=== PATIENT | male | born 1990 | race Caucasian/White ===

== ENCOUNTER 2017-04-10 11:13 | Emergency (ER) | payer BC, OTHER ==
[2017-04-10] MEDS ORDERED: Diphtheria,Pertussis(Acell),Tetanus Vaccine 0.5 ML SDV IM ONE (11:52)
--- NOTE | 2017-04-10 11:52 | EDM.PDOC ---
ED HPI GENERAL MEDICAL PROBLEM - General Chief Complaint: Upper Extremity Injury/Pain Stated Complaint: Laceration Time Seen by Provider: 04/10/17 11:40 Source of Information: Reports: Patient, RN Notes Reviewed History Limitations: Reports: No Limitations - History of Present Illness INITIAL COMMENTS - FREE TEXT/NARRATIVE: 26 year old presents to the ED with large laceration to his left forearm. Injury occurred while using a nut grinder. The injury occurred shortly prior to arrival. He denies numbness, tingling or weakness distal to injury. Last tetanus is unknown, he feels it's been approximately 5 years ago but is not sure. Left Arm Pain Score (Numeric/FACES): 4 - Related Data Allergies Allergy/AdvReac Type Severity Reaction Status Date / Time No Known Allergies Allergy Verified 04/10/17 11:17 Home Meds: Home Meds Claritin. 04/10/17 [History] Past Medical History - Past Health History Medical/Surgical History: Denies Medical/Surgical History Other HEENT History: ringing L) ear, wears eyeglasses Social & Family History - Tobacco Use Smoking Status *Q: Never Smoker - Alcohol Use Days Per Week of Alcohol Use: 2 Number of Drinks Per Day: 2 Total Drinks Per Week: 4 - Recreational Drug Use Recreational Drug Use: No Review of Systems - Review of Systems Review Of Systems: See Below Musculoskeletal: Reports: Arm Pain Skin: Reports: Wound Neurological: Denies: Numbness, Tingling, Weakness ED EXAM, GENERAL - Physical Exam Exam: See Below Exam Limited By: No Limitations General Appearance: Alert, WD/WN, No Apparent Distress Respiratory/Chest: No Respiratory Distress Cardiovascular: Regular Rate, Rhythm Extremities: Other (large laceration to left inner forearm. Patient Placement Coordinator strength is strong. CMS intact. No neurovascular injury. Has strength against resistance with open hand. ) Neurological: Alert, No Motor/Sensory Deficits Skin Exam: Warm, Dry, Normal Color, Other (5cm laceration to left inner forearm. Approximately 1.5cm is superficial and does not require sutures. ) ED TRAUMA EXTREMITY PROCEDURES - Laceration/Wound Repair Left Arm Lac/Wound Length In cm: 5 Appearance: Subcutaneous, Linear, Mildly Contaminated Distal NVT: Neuro & Vascular Intact, No Tendon Injury Anesthetic Type: Local Local Anesthesia - Lidocaine (Xylocaine): 1% with EPI Local Anesthetic Volume: 4cc Skin Prep: Saline Exploration/Debridement/Repair: Wound Explored, In a Bloodless Field, Explored to Base, No Foreign Material Found, Other (Thoroughly irrigated ) Closed With: Sutures Suture Size: 3-0 # of Sutures: 5 Suture Type: Nylon, Interrupted, Simple Sterile Dressing Applied: Nurse Tetanus Status Addressed: Yes Complications: No Course - Vital Signs Last Recorded V/S: Last Vital Signs Temp 97.8 F 04/10/17 11:18 Pulse 78 04/10/17 11:18 Resp 16 04/10/17 11:18 BP 152/104 H 04/10/17 11:18 Pulse Ox 96 04/10/17 11:18 - Orders/Labs/Meds Orders: Active Orders 24 hr Category Date Time Status Vaccines to be Administered [RC] PER UNIT ROUTINE Care 04/10/17 11:52 Ordered Meds: Medications Discontinued Medications Generic Name Dose Route Start Last Admin Trade Name Freq PRN Reason Stop Dose Admin Diphtheria/Tetanus/Acell Pertussis 0.5 ml 04/10/17 11:52 04/10/17 12:33 Adacel IM 04/10/17 11:53 0.5 ml .ONCE ONE Administration Lidocaine/Epinephrine Confirm 04/10/17 11:57 04/10/17 12:39 Xylocaine 1% With Epinephrine 1:100,000 Administered 04/10/17 11:58 Not Given Dose 20 ml .ROUTE .STK-MED ONE Lidocaine/Epinephrine 20 ml 04/10/17 12:39 04/10/17 12:20 Xylocaine 1% With Epinephrine 1:100,000 INJECT 04/10/17 12:40 20 ml ONETIME STA Administration - Re-Assessments/Exams Free Text/Narrative Re-Assessment/Exam: Wound margins were mildly dirty. Interior aspect of the wound is clean. Wound thoroughly irrigated. Antibiotics are not indicated. Tdap updated. Departure - Departure Time of Disposition: 12:11 Disposition: Home, Self-Care 01 Condition: Good Clinical Impression: Laceration, Tetanus toxoid inoculation - Discharge Information Instructions: Laceration Care, Adult Referrals: PCP,Not In Area [Primary Care Provider] - Forms: ED Department Discharge Additional Instructions: Laceration with suture repair Try to keep initial dressing in place for 24 hours After 24 hours, you can gently wash the wound with gentle soap and water Do not submerge the area in water until the sutures are out Apply antibiotic ointment and keep the wound covered for first 2-3 days then leave open to air Keep wound covered if there is a chance it can get dirty Sutures need to be removed in 8-10 days [facility] removes sutures for free. Their hours are 8am- 5pm Friday through Friday. Return to clinic if signs or symptoms of infection arise, including increased redness, swelling, drainage, or fever Tylenol or Ibuprofen as needed for pain - My Orders Last 24 Hours: My Active Orders 04/10/17 11:52 Vaccines to be Administered [RC] PER UNIT ROUTINE - Assessment/Plan Last 24 Hours: My Active Orders 04/10/17 11:52 Vaccines to be Administered [RC] PER UNIT ROUTINE
[2017-04-10] MEDS ORDERED: Lidocaine 1% with EPINEPHrine 1:100,000 20 ML MDV ONE (11:57)
[2017-04-10 12:00] VITALS: BP 152/104
[2017-04-10] MEDS ORDERED: Lidocaine 1% with EPINEPHrine 1:100,000 20 ML MDV INJECT STA (12:39)
== END 2017-04-10 12:40 | disposition home or self-care (01) ==
LOC: JD.ED 11:13
DX: S51.812A Laceration without foreign body of left forearm, initial encounter (principal); Z23 Encounter for immunization; W31.89XA Contact with other specified machinery, initial encounter
CPT/HCPCS: 12002; 90471; 90715; 99282-25; 99283-25

== ENCOUNTER → 2018-05-28 | Day surgery (SDC) | payer BC ==
[~2018-05-28] MED LIST: Ketamine 500 mg/10 ML MDV ONE; Lidocaine 1% 0 ML ONE; Midazolam 1 MG/ML 2 ML SDV ONE; Ondansetron 4 MG/2 ML SDV ONE; Propofol 200 MG/20 ML SDV ONE; ceFAZolin 1 GM Vial ONE; fentaNYL 100 MCG/2 ML SDV ONE
--- NOTE | 2018-05-28 10:21 | PCM.PREANE ---
Preanesthetic Assessment - Anesthesia/Transfusion/Family Hx Anesthesia History: Prior Anesthesia Without Reaction Family History of Anesthesia Reaction: No Transfusion History: No Prior Transfusion(s) - Review of Systems General: No Symptoms Pulmonary: No Symptoms, Other (Nodule noted on CXR. Dr. Ramirez and YELITZA Parsons aware. ) Cardiovascular: No Symptoms Gastrointestinal: No Symptoms Neurological: No Symptoms Other: Reports: None - Physical Assessment NPO Status Date: 05/27/18 ASA Class: 1 Mental Status: Alert & Oriented x3 Airway Class: Mallampati = 2 Dentition: Reports: Normal Dentition (Chipped tooth back molar on the right. ) Thyro-Mental Finger Breadths: 3 Mouth Opening Finger Breadths: 3 ROM/Head Extension: Full Lungs: Clear to Auscultation, Normal Respiratory Effort Cardiovascular: Murmurs (Right side, slight murmur noted, EKG done, ECHO pending. Denies symptoms. YELITZA Lazar wish to proceed) - Allergies Allergies/Adverse Reactions: Allergies Allergy/AdvReac Type Severity Reaction Status Date / Time No Known Allergies Allergy Verified 05/28/18 10:26 - Acknowledgements Anesthesia Type Planned: General Anesthesia Pt/Guardian Understands and Agrees with Anesthesia Plan: Yes Additional Comments: Buster's EKG completed PreOp was read by Dr. Saldivar in the ER. The results came back abnormal with possible Q waves and inferior AL noted in lead III and AVF, Left anterior fasicular block noted as well. Buster missed his ECHO appointment as well yesterday. He does have a slight murmur noted on the right side of his sternum. I visited with Dr. Ramirez and he wishes to reschedule the patient until we can complete the ECHO and have him see a primary care physician. PreAnesthesia Questionnaire - Past Health History Medical/Surgical History: Denies Medical/Surgical History HEENT History: Reports: Hard of Hearing Other HEENT History: left ear hearing loss,. had wisdom teeth removed. Cardiovascular History: Reports: Heart Murmur Other Cardiovascular History: was told yesterday at preop has a faint heart murmur - SUBSTANCE USE Smoking Status *Q: Never Smoker Recreational Drug Use History: No - HOME MEDS Home Medications: Home Meds Acetaminophen [Tylenol Extra Strength] 1,000 mg PO ASDIRECTED PRN 05/27/18 [ History] Acetaminophen/HYDROcodone [[place] 325-5 MG] 1 - 2 tab PO Q6H PRN #30 tablet 05/28 [Rx] - CURRENT (IN HOUSE) MEDS Current Meds: Current Medications Discontinued Medications Cefazolin Sodium (Ancef) Confirm Administered Dose 2 gm .ROUTE .STK-MED ONE Stop: 05/28/18 09:56 Fentanyl (Sublimaze) Confirm Administered Dose 100 mcg .ROUTE .STK-MED ONE Stop: 05/28/18 07:07 Lidocaine HCl (Xylocaine-Mpf 1%) Confirm Administered Dose 4 mls @ as directed .ROUTE .STK-MED ONE Stop: 05/28/18 07:07 Ketamine HCl (Ketalar) Confirm Administered Dose 500 mg .ROUTE .STK-MED ONE Stop: 05/28/18 07:07 Midazolam HCl (Versed 1 Mg/Ml) Confirm Administered Dose 2 mg .ROUTE .STK-MED ONE Stop: 05/28/18 07:07 Ondansetron HCl (Zofran) Confirm Administered Dose 4 mg .ROUTE .STK-MED ONE Stop: 05/28/18 07:07 Propofol (Diprivan 20 Ml) Confirm Administered Dose 600 mg .ROUTE .STK-MED ONE Stop: 05/28/18 07:06
[2018-05-28 10:24] VITALS: BP 132/92
== END | disposition home or self-care (01) ==
LOC: JD.SDS 09:07
PROVIDERS: ATTEND Orthopaedic Surgery
DX: S62.324A Displaced fracture of shaft of fourth metacarpal bone, right hand, initial encounter for closed fracture (principal); Z53.9 Procedure and treatment not carried out, unspecified reason; X58.XXXA Exposure to other specified factors, initial encounter
CPT/HCPCS: 93005; J0690; J2001; J2250; J2405; J2704; J3010

== ENCOUNTER 2018-09-17 22:32 | Emergency (ER) | payer BC ==
[2018-09-17 22:41] VITALS: BP 135/80
[2018-09-17] MEDS ORDERED: Lidocaine 1% 50 ML MDV INJECT ONE (23:12)
--- NOTE | 2018-09-18 00:51 | EDM.PDOC ---
ED HPI GENERAL MEDICAL PROBLEM - General Chief Complaint: Laceration Stated Complaint: [facility] Time Seen by Provider: 09/17/18 22:56 Source of Information: Reports: Patient, EMS History Limitations: Reports: Intoxication - History of Present Illness INITIAL COMMENTS - FREE TEXT/NARRATIVE: The patient presents by [facility] for lacerations to his right hand. [place] he said he slammed his glass down and it broke and cut his hand. He has 3 lacerations to his right hand. He has one at the base of the thumb. One between the 2nd and 3rd digits and one on the 2nd finger. His right handed. His tetanus is up to date. He can move his fingers and feel everything. EMS had the bleeding controlled with a bandage. Onset: Sudden Duration: Minutes: Location: Reports: Upper Extremity, Right (hand) Quality: Reports: Sharp Severity: Moderate Improves with: Reports: Immobilization Worsens with: Reports: Movement Associated Symptoms: Reports: No Other Symptoms Right Hand Pain Score (Numeric/FACES): 3 - Related Data Allergies Allergy/AdvReac Type Severity Reaction Status Date / Time No Known Allergies Allergy Verified 09/17/18 22:41 Home Meds: Home Meds . [No Known Home Meds] 09/17/18 [History] Past Medical History - Past Health History Medical/Surgical History: Denies Medical/Surgical History HEENT History: Reports: Hard of Hearing Other HEENT History: left ear hearing loss,. had wisdom teeth removed. Cardiovascular History: Reports: Heart Murmur Other Cardiovascular History: was told yesterday at preop has a faint heart murmur Respiratory History: Reports: None Gastrointestinal History: Reports: None Musculoskeletal History: Reports: Fracture - Past Surgical History Other Musculoskeletal Surgeries/Procedures:: fracture of right hand 3 weeks ago Social & Family History - Family History Family Medical History: Noncontributory - Tobacco Use Smoking Status *Q: Never Smoker Second Hand Smoke Exposure: No - Caffeine Use Caffeine Use: Reports: Coffee - Recreational Drug Use Recreational Drug Use: No ED ROS GENERAL - Review of Systems Review Of Systems: See Below Constitutional: Reports: No Symptoms HEENT: Reports: No Symptoms Respiratory: Reports: No Symptoms Cardiovascular: Reports: No Symptoms Endocrine: Reports: No Symptoms GI/Abdominal: Reports: No Symptoms : Reports: No Symptoms Musculoskeletal: Reports: Other (3 lacerations to the left hand) ED EXAM, SKIN/RASH Exam: See Below Exam Limited By: Intoxication General Appearance: Alert, No Apparent Distress Ears: Normal External Exam Nose: Normal Inspection Head: Atraumatic, Normocephalic Neck: Normal Inspection Extremities: Other (3 lacerations to his right hand. One is 2cm to the base of the thumb in the palm of his hand. The second is a curved flap at the base of the 2nd and 3rd fingers extending between the fingers. The 3rd is 2cm to the 2nd finger. He has good sensation and movement to all fingers with good capillary refill.) ED SKIN PROCEDURES - Laceration/Wound Repair Right Hand Lac/Wound length In cm: 2 Appearance: Linear, Clean Distal NVT: Neuro & Vascular Intact, No Tendon Injury Anesthetic Type: Local Local Anesthesia - Lidocaine (Xylocaine): 1% Plain Skin Prep: Saline Exploration/Debridement/Repair: Wound Explored, In a Bloodless Field, Explored to Base Closed with: Sutures Suture Size: 4-0 # of Sutures: 3 Suture Type: Nylon, Interrupted, Simple Sterile Dressing Applied: Nurse Tetanus Status Addressed: Yes Complications: No Progress/Comments: There was also a 3cm laceration to the right hand. It was a curved flap type laceration. I explored the wound to the base. There was no sign of glass or contamination. I cleaned the wound with saline. There was no nerve or tendon involvement. I used 4ccs of lidocaine plain to anaesthetize the wound. I used 7 nylon sutures to close the wound. I used a simple technique. His tetanus was up to date and there were no complications. Course - Vital Signs Last Recorded V/S: Last Vital Signs Temp 97.6 F 09/17/18 22:38 Pulse 90 09/17/18 22:38 Resp 16 09/17/18 22:38 BP 135/80 09/17/18 22:38 Pulse Ox 98 09/17/18 22:38 - Orders/Labs/Meds Orders: Active Orders 24 hr Category Date Time Status Hand Comp Min 3V Rt [CR] Stat Exams 09/17/18 23:11 Taken Meds: Medications Discontinued Medications Generic Name Dose Route Start Last Admin Trade Name Freq PRN Reason Stop Dose Admin Lidocaine HCl 50 ml 09/17/18 23:12 09/18/18 00:03 Xylocaine 1% INJECT 09/17/18 23:13 50 ml ONETIME ONE Administration - Re-Assessments/Exams Free Text/Narrative Re-Assessment/Exam: 09/18/18 00:56 I did an x-ray of his hand. I could see a small shard of glass or FB near the wound. I could not find that on my exam and when suturing. It must have been flushed out. I closed the wound. There were no complications. Departure - Departure Time of Disposition: 01:00 Disposition: Home, Self-Care 01 Condition: Good Clinical Impression: Laceration of multiple sites of right hand and fingers Qualifiers: Encounter type: initial encounter Qualified Code(s): S61.411A - Laceration without foreign body of right hand, initial encounter; S61.219A - Laceration without foreign body of unspecified finger without damage to nail, initial encounter - Discharge Information *PRESCRIPTION DRUG MONITORING PROGRAM REVIEWED*: Not Applicable *COPY OF PRESCRIPTION DRUG MONITORING REPORT IN PATIENT SUSHMA: Not Applicable Referrals: PCP,None [Primary Care Provider] - Additional Instructions: Soak your hand in warm soapy water 2 times per day and apply antibiotic ointment after. Have the sutures removed in 1 week. Look for any sign of infection such as redness, swelling, pain or drainage. If you see any of these signs please return because you may need oral antibiotics. - My Orders Last 24 Hours: My Active Orders 09/17/18 23:11 Hand Comp Min 3V Rt [CR] Stat - Assessment/Plan Last 24 Hours: My Active Orders 09/17/18 23:11 Hand Comp Min 3V Rt [CR] Stat ED LACERATION/WOUND PROCEDURES - Laceration/Wound Repair Right Digit - 2nd (Index) Laceration/Wound Length In cm: 2 Appearance: Subcutaneous, Irregular Distal NVT: Neuro & Vascular Intact, No Tendon Injury Anesthetic Type: Local Local Anesthesia - Lidocaine (Xylocaine): 1% Plain Local Anesthetic Volume: 2cc Skin Prep: Saline Wound Exploration, Debridement, Revision: Wound Explored, In a Bloodless Field, Explored to Base Suture Size: 4-0 # of Sutures: 5 Suture Type: Nylon, Interrupted, Simple Tetanus Status Addressed: Yes Complications: None
--- NOTE | 2018-09-18 08:46 | CR ---
Right hand: Three views of the right hand were obtained. Comparison: No prior right hand study. Soft tissue injury is identified within the distal second finger. Deformity from old healed fracture is noted within the tuft of the distal right fourth finger compatible with old healed fracture. Fracture is noted within the shaft of the fourth metacarpal. Fracture line is still visible but bridging callus is identified. No additional abnormality is appreciated. Impression: 1. Soft tissue injury within the second finger. 2. Fracture within the shaft of the fourth metacarpal. Fracture line is still visible but mild bridging callus is seen. 3. Old healed fracture deformity within the tuft of the distal fourth finger. Diagnostic code #3
== END 2018-09-18 01:14 | disposition home or self-care (01) ==
LOC: JD.ED 22:32
DX: S61.421A Laceration with foreign body of right hand, initial encounter (principal); S61.210A Laceration without foreign body of right index finger without damage to nail, initial encounter; W23.0XXA Caught, crushed, jammed, or pinched between moving objects, initial encounter
CPT/HCPCS: 12002; 73130-26-RT; 73130-RT; 99282; 99284-25